=== PATIENT | male | born 1975 | race Caucasian/White ===

== ENCOUNTER 2020-05-16 12:46 | Emergency (ER) | payer OTHER ==
[~2020-05-16 12:46] MED LIST: ASPIRIN EC81 MG PO; ATORVASTATIN CA20 MG PO; BRILINTA 90 MG90 MG PO; CARDURA2 MG PO; CARVEDILOL12.5 MG PO; CLOPIDOGREL75 MG PO; ECOTRIN81 MG PO; FIORICET TAB1 EA PO; GABAPENTIN300 MG PO; HABITROL 14 MG P1 EA TOP; HYDROCHLOROTHIA25 MG PO; IMDUR ER TAB 6060 MG PO; LOPRESSOR 25 MG25 MG PO; LOPRESSOR 50 MG50 MG PO; LOPRESSOR50 MG PO; NEURONTIN600 MG PO; NITROGLYCERIN0.4 MG SL; NITROSTAT0.4 MG SL; NORVASC10 MG PO; OMEPRAZOLE40 MG PO; QUETIAPINE FUMA50 MG PO; ZESTRIL 40 MG T40 MG PO; ZESTRIL40 MG PO
[2020-05-16 13:42] LABS: HEMOGLOBIN 13.9 gm/dl (14.0-17.5); RED BLOOD COUNT 4.79 M/UL (4.20-5.50); WHITE BLOOD COUNT 6.1 K/UL (4.5-11.0)
[2020-05-16 13:58] LABS: BUN/CREATININE RATIO 22 (0-10)
== END 2020-05-16 15:06 | disposition home or self-care (01) ==
LOC: ER1 12:46
PROVIDERS: Emergency Medicine; Surgery
PROC: 0XJ Anatomical Regions, Upper Extremities, Inspection (ICD-10-PCS; principal; 2020-05-16 14:54)
DX: S65.112A Laceration of radial artery at wrist and hand level of left arm, initial encounter (principal); S61.512A Laceration without foreign body of left wrist, initial encounter; I11.9 Hypertensive heart disease without heart failure; Z20.822 Contact with and (suspected) exposure to COVID-19; I25.2 Old myocardial infarction; Z95.5 Presence of coronary angioplasty implant and graft; Z23 Encounter for immunization; W25.XXXA Contact with sharp glass, initial encounter; Y92.009 Unspecified place in unspecified non-institutional (private) residence as the place of occurrence of the external cause
CPT/HCPCS: 36415; 73110; 80048; 85025; 85610; 85730; 86850; 86900; 86901; 87635; 90471; 90714; 96374; 99284; C1769; J0690; J1580; J2001; J2060; J2405; J2704; J2710; J3010; J7040; J7050; J7120